=== PATIENT | male | born 1970 | race Caucasian/White ===

== ENCOUNTER 2017-03-08 10:33 | Emergency (ER) | payer BC ==
[2017-03-08] MEDS ORDERED: Aspirin TAB* 325 MG PO ONE (12:23)
[2017-03-08] MEDS ORDERED: ALPRAZolam TAB* 0.25 MG PO ONE (12:23)
[2017-03-08 12:56] LABS: Hematocrit 47 % (42-52); Hemoglobin 15.8 g/dl (14.0-18.0); Mean Corpuscular HGB Conc 34 g/dl (31-36); Mean Corpuscular Hemoglobin 30 pg (27-31); Mean Corpuscular Volume 89 fL (80-94); Mean Platelet Volume 10 um3 (7.4-10.4); Red Blood Count 5.24 10^6/ul (4.0-5.4); Red Cell Distribution Width 13 % (10.5-15)
[2017-03-08 13:12] LABS: BUN/Creatinine Ratio 12.7 (8-20); Calcium 9.8 mg/dL (8.6-10.3); EGFR African American 93.1 (>60); EGFR Non-African American 72.4 (>60)
[2017-03-08 13:55] LABS: Potassium 4.2 mmol/L (3.5-5.0)
[2017-03-08 16:57] VITALS: BP 121/81
--- NOTE | 2017-03-15 23:22 | ED ---
Manjit Escobar Auryana, scribed for Zenon Barnes MD on 03/08/17 at 1719 . Palpitations / Dysrhythmia - HPI Summary HPI Summary: 46 year old male presents with palpitations s/p taking a new medication, Ritalin , for ADHD. Patient states that he took his medication at 06:30/7 AM, and at 10: 30 he started to see symptoms - bilateral hand numbness, palpitations, and now PAPPAS. He denies any fever, chills, sweats, abnormal fluctuations in mood. He reports normal appetite and fluid intake. PMHx is significant for HTN and ADHD. SHx is significant for tobacco, alcohol-states used to drink a lot or recreational drug use. He does admit to caffeine intake - reports decaf today. - History of Current Complaint Chief Complaint: EDDysrhythmPalp Time Seen by Provider: 03/08/17 11:49 Hx Obtained From: Patient Onset/Duration: Sudden Onset, Lasting Hours, Still Present Timing: Constant Severity Initially: Moderate Severity Currently: Moderate Character: Fast Aggravating: Medication - Allergy/Home Medications Allergies/Adverse Reactions: Allergies Allergy/AdvReac Type Severity Reaction Status Date / Time Latex Allergy Rash Verified 03/15/15 16:23 Home Medications: Home Medications Methylphenidate HCl [Methylphenidate HCl ER] 20 mg PO DAILY 03/08/17 [History Confirmed 03/08/17] PMH/Surg Hx/FS Hx/Imm Hx Cardiovascular History: Reports: Hx Hypertension Sensory History: Reports: Hx Contacts or Glasses - contacts Opthamlomology History: Reports: Hx Contacts or Glasses - contacts Psychiatric History: Reports: Hx Anxiety, Hx Panic Disorder - when around large crowds of people - Surgical History Surgery Procedure, Year, and Place: lap appy, pins in left wrist, rotator cuff surgery right, sewed right arm back together from saw blade falling on it. Hx Anesthesia Reactions: Yes - hypothermia after pins in the left wrist Infectious Disease History: No Infectious Disease History: Denies: Traveled Outside the [place] in Last 30 Days - Family History Known Family History: Negative: Seizure Disorder - Social History Alcohol Use: Weekly Substance Use Type: Reports: None Smoking Status (MU): Never Smoked Tobacco Review of Systems Constitutional: Negative Negative: Fever, Chills Eyes: Negative Negative: Erythema ENT: Negative Negative: Sore Throat Positive: Palpitations. Negative: Chest Pain Respiratory: Negative Negative: Shortness Of Breath, Cough Gastrointestinal: Negative Negative: Abdominal Pain, Vomiting, Nausea Genitourinary: Negative Negative: dysuria, hematuria Musculoskeletal: Negative Negative: Myalgia Skin: Negative Negative: Rash Neurological: Other - no dizziness Positive: Headache, Numbness - in the bilateral hands Psychological: Normal All Other Systems Reviewed And Are Negative: Yes Physical Exam - Summary Physical Exam Summary: Constitutional: Well-developed, Well-nourished, Alert. (-) Distressed. Skin: Warm, Dry HENT: Normocephalic; Atraumatic Eyes: Conjunctiva normal Neck: Musculoskeletal ROM normal neck. (-) JVD, (-) Stridor, (-) Tracheal deviation Cardio: Rhythm regular, rate normal, Heart sounds normal; Intact distal pulses; The pedal pulses are 2+ and symmetric. Radial pulses are 2+ and symmetric. (-) Murmur Pulmonary/Chest wall: Effort normal. (-) Respiratory distress, (-) Wheezes, (-) Rales Abd: Soft, (-) Tenderness, (-) Distension, (-) Guarding, (-) Rebound Musculoskeletal: (-) Edema Lymph: (-) Cervical adenopathy Neuro: Alert, Oriented x3 Psych: Anxious appearing. Triage Information Reviewed: Yes Vital Signs On Initial Exam: Initial Vitals Temp Pulse Resp BP Pulse Ox 97.8 F 136 18 200/114 100 03/08/17 10:35 03/08/17 10:35 03/08/17 10:35 03/08/17 10:35 03/08/17 10:35 Vital Signs Reviewed: Yes - Gaetano Coma Scale Coma Scale Total: 15 Diagnostics - Vital Signs Vital Signs Temp Pulse Resp BP Pulse Ox 03/08/17 12:02 97.3 F 82 22 189/98 98 03/08/17 10:35 97.8 F 136 18 200/114 100 - Laboratory Result Diagrams: 03/08/17 12:50 03/08/17 12:50 Lab Statement: Any lab studies that have been ordered have been reviewed, and results considered in the medical decision making process. - EKG 11:03 EKG Interpretation: sinus rhythm of 97, no stemi Course/Dx - Course Course Of Treatment: 46 year old male presents with palpitations s/p taking a new medication, Ritalin, for ADHD. Patient states that he took his medication at 06:30/7 AM, and at 10:30 he started to see symptoms - bilateral hand numbness , palpitations, and now PAPPAS. He denies any fever, chills, sweats, abnormal fluctuations in mood. He reports normal appetite and fluid intake. PMHx is significant for HTN and ADHD. SHx is significant for tobacco, alcohol-states used to drink a lot or recreational drug use. He does admit to caffeine intake - reports decaf today. LABS WNL. EKG - SINUS RHYTHM OF 97, NO STEMI. HTN related to Ritalin discontinue and f/u. No signs of ACS Dx: medication adverse effect, uncontrolled HTN. - Diagnoses Differential Diagnosis/HQI/PQRI: Positive: Medication Induced, Other - HTN Provider Diagnoses: Medication adverse effect, Uncontrolled hypertension Discharge - Discharge Plan Condition: Stable Disposition: HOME Patient Education Materials: Hypertension (ED), Adverse Drug Reaction (ED) Forms: *Work Release Referrals: Shakila Espino, IMPROVEMENT INTERN [Primary Care Provider] - 3 Days Additional Instructions: RETURN TO THE EMERGENCY DEPARTMENT FOR CHANGING OR WORSENING SYMPTOMS The documentation as recorded by the Manjit pires Auryana accurately reflects the service I personally performed and the decisions made by me, Zenon Barnes MD.
== END 2017-03-08 16:50 | disposition home or self-care (01) ==
LOC: ED 10:33
DX: I10 Essential (primary) hypertension (principal); T43.635A Adverse effect of methylphenidate, initial encounter; F15.90 Other stimulant use, unspecified, uncomplicated; Y92.9 Unspecified place or not applicable; F90.9 Attention-deficit hyperactivity disorder, unspecified type
CPT/HCPCS: 36415; 80048; 84484; 85027; 93005; 99282; A9270-GY

== ENCOUNTER 2021-02-28 06:03 | Observation (INO) ==
[~2021-02-28 06:03] MED LIST: Buffered Lidocaine 1% SYRIN 1 ml INTRADERM ONE; Famotidine IV 10 MG/ML 2 ml VIAL (20 mg) IV ONE; Lactated Ringers 1000 ml BAG 1,000 ML IV SCH
[2021-02-28] MEDS ORDERED: Famotidine IV 10 MG/ML 2 ml VIAL (20 mg) ONE (06:24)
[2021-02-28] MEDS ORDERED: Buffered Lidocaine 1% SYRIN 1 ml INTRADERM ONE (06:24)
[2021-02-28] MEDS ORDERED: ceFAZolin 2 GM PREMIX 2 GM/50 ML BAG ONE (06:24)
[2021-02-28] MEDS ORDERED: Midazolam 2 mg/2 ml VIAL 1 mg/ml 2 ml VIAL (2 mg) ONE (06:57)
[2021-02-28] MEDS ORDERED: fentaNYL 100 mcg/2 ml 50 MCG/ML VIAL ONE ×3 (06:57→10:14)
[2021-02-28] MEDS ORDERED: Ondansetron 4 mg VIAL 2 MG/ML 2 ml VIAL ONE (06:57)
[2021-02-28] MEDS ORDERED: Dexamethasone IV 4 MG/ML VIAL 1 ml VIAL ONE (06:57)
[2021-02-28] MEDS ORDERED: Rocuronium 50 mg VIAL 10 mg/ml 5 ml VIAL (50 mg) ONE (06:57)
[2021-02-28] MEDS ORDERED: Propofol 10 MG/ML 20 ML BTL ONE (06:57)
[2021-02-28] MEDS ORDERED: Lidocaine 2% PF 5 ML VIAL ONE (06:57)
[2021-02-28] MEDS ORDERED: Bupivacaine 0.25% SDV PF 10 ML VIAL INJ ONE (07:15)
[2021-02-28] MEDS ORDERED: Ondansetron 4 mg VIAL 2 MG/ML 2 ml VIAL IV PRN ×2 (07:17→15:40)
[2021-02-28] MEDS ORDERED: fentaNYL 100 mcg/2 ml 50 MCG/ML VIAL IV PRN (07:17)
[2021-02-28] MEDS ORDERED: Naloxone 0.4 mg VIAL 0.4 mg/ml 1 ml VIAL IV PRN (07:17)
[2021-02-28] MEDS ORDERED: Glycopyrrolate IV 0.2 MG/ML 1 ML VIAL ONE ×2 (07:58→08:23)
[2021-02-28] MEDS ORDERED: Desflurane 240 ML INH ONE (08:48)
[2021-02-28] MEDS ORDERED: Acetaminophen IV 1 GM/100ML 100 ML ONE (09:13)
[2021-02-28] MEDS ORDERED: Naloxone 4 mg VIAL 0.4 MG/ML 10 ml VIAL (4 mg) ONE (09:38)
[2021-02-28] MEDS ORDERED: HYDROmorphone 1 MG/1 ML SYRINGE IV SLOW PU PRN (15:40)
[2021-02-28] MEDS ORDERED: Dextrose 50% Syringe 50 ml 25 GM/50 ML SYRINGE IV PUSH PRN (16:43)
[2021-02-28 19:14] LABS: ABS Basophils 0.1 10^3/ul (0-0.2); ABS Lymphocytes 0.8 10^3/ul (1.0-4.8); ABS Monocytes 0.6 10^3/ul (0-0.8); Hematocrit 39 % (42-52); Hemoglobin 13.2 g/dL (14.0-18.0); Lymphocyte % 4.5 %; Mean Corpuscular HGB Conc 34 g/dL (31-36); Mean Corpuscular Hemoglobin 31 pg (27-31); Mean Corpuscular Volume 90 fL (80-94); Mean Platelet Volume 9.3 fL (7.4-10.4); Platelet Count 200 10^3/uL (150-450); Red Blood Count 4.33 10^6 /uL (4.18-5.48); Red Cell Distribution Width 13 % (10-15); White Blood Count 17.4 10^3/uL (3.5-10.8)
[2021-02-28 19:30] LABS: Calcium 8.9 mg/dL (8.6-10.3); EGFR African American 82.6 (>60); EGFR Non-African American 68.3 (>60); Potassium 4.1 mmol/L (3.5-5.0)
[2021-02-28] MEDS ORDERED: Piperacillin/Tazobac ADVAN 3.375 GM in NS 0.9% 100 ml BAG 100 ML IV ONE (20:45)
[2021-02-28] MEDS ORDERED: Zosyn per Pharmacy NOTE FOLLOW UP PRN (22:01)
[2021-03-01] MEDS: ZOSYN 3.375 GM Q8H per EXTENDED INFUSION IV SCH ×2 (02:52→10:25)
[2021-03-01 12:30] VITALS: BP 117/76
== END 2021-03-01 15:38 | disposition home or self-care (01) ==
LOC: OR 06:03 → SSU 06:03
PROVIDERS: ADMIT Surgery; ATTEND Surgery